=== PATIENT | female | born 1980 | race Asian ===

== ENCOUNTER → 2023-10-18 13:25 | Outpatient (CLI) | payer BC, SELFPAY ==
--- NOTE | 2023-10-19 02:36 | DI.NM.S_ITS ---
DATE OF SERVICE: 10/18/2023 PROCEDURE PERFORMED: Exercise treadmill stress test without imaging. ORDERING PROVIDER: Konstantin Baker M.D. INDICATIONS: The patient is a 43-year-old female with palpitations and atypical chest discomfort. FINDINGS: 1. The patient was able to exercise for 7 minutes, 44 seconds on a standard F[facility]ix protocol, suggesting mildly reduced exercise capacity with an CLEMENCIA of +8%, achieving 10.1 METS. 2. She had a normal heart rate and blood pressure response to exercise, achieving a maximum heart rate of 154 BPM (88% of her predicted maximum). 3. She had no chest discomfort or other anginal symptoms but complained of right shoulder pain at peak exercise that promptly resolved in recovery. 4. Her resting ECG showed sinus rhythm with normal ST segments. There were no significant ST-segment shifts or arrhythmias with stress. IMPRESSION: 1. Normal exercise treadmill stress test for ischemia. 2. Mildly impaired exercise capacity without anginal chest discomfort or arrhythmias, but with atypical right shoulder discomfort at peak exercise. Deanne Roque - /carrie/ doc#: [id number]/job#: [id number] dd: 10/18/2023 16:47:00 dt: 10/19/2023 02:21:00 DICTATING MD/COPIES TO: Ambrocio Herrera MD; Konstantin Baker M.D. COPIES MNE: JEAN CARLOS
== END ==
PROVIDERS: Referring Provider Student in an Organized Health Care Education/Training Program; Visit Provider Student in an Organized Health Care Education/Training Program
DX: R07.89 Other chest pain (principal); R00.2 Palpitations
CPT/HCPCS: 93017